=== PATIENT | male | born 1995 | race Caucasian/White ===

== ENCOUNTER 2019-12-16 18:35 | Emergency (ER) | payer OTHER ==
[~2019-12-16] VITALS: Ht 177.8 cm; Wt 64.5 kg
[2019-12-16 18:42] VITALS: BP 109/72
--- NOTE | 2019-12-16 19:04 | NUR ---
PA IN ROOM FOR EVAL. VSS. PT STS NO KETAMINE X7 DAYS IS SEEING THERAPIST CURRENTLY FOR DEPRESSION. DENIES SI/HI. OOB TO BATHROOM GAIT STEADY. STS WHILE ON K BINGE WAS NOT EATING MUCH/WELL. DIFFUSE ABD PAIN WORSE ON PALP, DIARRHEA.
[2019-12-16 19:28] LABS: MICROSCOPIC NOT IND
[2019-12-16 19:31] LABS: ALANINE AMINOTRANSFERASE 31 U/L (12-78); ALBUMIN 3.8 g/dL (3.4-5.0); ANION GAP 6 mmol/L (5-15); CALCIUM 8.9 mg/dL (8.5-10.1); CHLORIDE 106 mmol/L (98-107); CREATININE 0.85 mg/dL (0.7-1.3)
[2019-12-16 19:33] LABS: ALKALINE PHOSPHATASE 100 U/L (45-117); BILIRUBIN,TOTAL 0.3 mg/dL (0.2-1.0); TOTAL PROTEIN 7.8 g/dL (6.4-8.2)
[2019-12-16 19:52] LABS: BASOPHILS # (AUTO) 0.05 x10^3/uL (0-0.1); BASOPHILS % (AUTO) 1 % (0-1); EOSINOPHILS # (AUTO) 0.18 x10^3/uL (0-0.4); EOSINOPHILS % (AUTO) 2 % (1-7); LYMPHOCYTES # (AUTO) 2.53 x10^3/uL (1-3.4); LYMPHOCYTES % (AUTO) 33 % (22-44); MD NO; MEAN CORPUSCULAR HEMOGLOBIN 30.5 pg (27.5-34.5); MEAN CORPUSCULAR HGB CONC 33.2 g/dL (33.2-36.2); MEAN CORPUSCULAR VOLUME 91.7 fL (81-97); MEAN PLATELET VOLUME 9.6 fL (7.4-10.4); MONOCYTES # (AUTO) 0.74 x10^3/uL (0.2-0.8); MONOCYTES % (AUTO) 10 % (2-9); NEUTROPHILS # (AUTO) 4.21 x10^3/uL (1.8-6.8); NEUTROPHILS % (AUTO) 55 % (42-75); PLATELET COUNT 227 x10^3/uL (130-400); RED BLOOD COUNT 4.98 x10^6/uL (4.38-5.82); RED CELL DISTRIBUTION WIDTH 13.2 % (9.4-14.8)
== END 2019-12-16 20:38 | disposition home or self-care (01) ==
LOC: ED 20:22
DX: R10.84 Generalized abdominal pain (principal); R19.7 Diarrhea, unspecified; R35.0 Frequency of micturition
CPT/HCPCS: 36415; 80053; 81003; 83690; 85025; 99283

== ENCOUNTER 2020-05-21 16:13 | Emergency (ER) | payer OTHER ==
[~2020-05-21] VITALS: Ht 154.9 cm; Wt 66.2 kg
[2020-05-21 16:16] VITALS: BP 136/80
[2020-05-21 16:56] LABS: BASOPHILS % (AUTO) 1 % (0-1); EOSINOPHILS % (AUTO) 0 % (1-7); LYMPHOCYTES % (AUTO) 12 % (22-44); MEAN CORPUSCULAR HEMOGLOBIN 30.9 pg (27.5-34.5); MEAN CORPUSCULAR HGB CONC 34.2 g/dL (33.2-36.2); MEAN PLATELET VOLUME 9.1 fL (7.4-10.4); MONOCYTES % (AUTO) 8 % (2-9); NEUTROPHILS % (AUTO) 79 % (42-75); PLATELET COUNT 202 x10^3/uL (130-400); RED BLOOD COUNT 4.79 x10^6/uL (4.38-5.82)
[2020-05-21 16:58] LABS: MD NO
[2020-05-21 17:07] LABS: ALANINE AMINOTRANSFERASE 46 U/L (12-78); ALBUMIN 4.3 g/dL (3.4-5.0); ANION GAP 9 mmol/L (5-15); CALCIUM 8.8 mg/dL (8.5-10.1); CHLORIDE 109 mmol/L (98-107); CREATININE 1.04 mg/dL (0.7-1.3)
[2020-05-21 17:09] LABS: ALKALINE PHOSPHATASE 83 U/L (45-117); TOTAL PROTEIN 7.9 g/dL (6.4-8.2)
== END 2020-05-21 18:12 | disposition home or self-care (01) ==
LOC: ED 16:51
DX: L03.114 Cellulitis of left upper limb (principal)
CPT/HCPCS: 36415; 80053; 85025; 99283

== ENCOUNTER 2020-12-01 17:21 | Emergency (ER) | payer OTHER ==
[~2020-12-01] VITALS: Ht 177.8 cm; Wt 67.0 kg
[2020-12-01] MEDS: SODIUM CHLORIDE 0.9% 1,000 ML IV SCH (08:00)
[2020-12-01 18:09] LABS: ALBUMIN 3.7 g/dL (3.4-5.0); ANION GAP 4 mmol/L (5-15); CALCIUM 8.8 mg/dL (8.5-10.1); CHLORIDE 106 mmol/L (98-107); CREATININE 1.13 mg/dL (0.7-1.3)
--- NOTE | 2020-12-01 19:39 | NUR ---
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 TO ROOM FROM FROM LOBBY AT THIS TIME.
[2020-12-01 19:42] LABS: MEAN CORPUSCULAR HEMOGLOBIN 30.6 pg (27.5-34.5); MEAN CORPUSCULAR HGB CONC 33.3 g/dL (33.2-36.2); MEAN PLATELET VOLUME 8.2 fL (7.4-10.4); PLATELET COUNT 211 x10^3/uL (130-400); RED BLOOD COUNT 5.05 x10^6/uL (4.38-5.82); RED CELL DISTRIBUTION WIDTH 13.7 % (9.4-14.8)
--- NOTE | 2020-12-01 20:00 | NUR ---
Patient advised that a urine sample is required. Patient states he will try after fluids.
[2020-12-01 20:09] LABS: BAND#(MANUAL) 0.34 x10^3/uL; BANDS%(MANUAL) 12 % (0-7); LYMPH#(MANUAL) 0.36 x10^3/uL (1-3.4); LYMPHS% (MANUAL) 13 % (22-44); MONOS#(MANUAL) 0.03 x10^3/uL (0.3-2.7); MONOS% (MANUAL) 1 % (2-9); SEG#(MANUAL) 2.07 x10^3/uL (1.8-6.8); SEGS% (MANUAL) 74 % (42-75)
[2020-12-01 20:10] LABS: <PLATELET ESTIMATE> ADEQUATE; <PLT MORPHOLOGY> NORMAL PLT MORPH
[2020-12-01] MEDS ORDERED: SODIUM CHLORIDE 0.9% 1,000ML IVBOLUS ONE ×2 (20:30→22:00)
[2020-12-01 20:39] LABS: ALBUMIN 3.6 g/dL (3.4-5.0); BILIRUBIN, DIRECT 0.6 mg/dL (0.1-0.2)
[2020-12-01] MEDS ORDERED: LEVOFLOXACIN/PMX 500MG/100ML 100 ML ONE (20:39)
[2020-12-01] MEDS ORDERED: KETOROLAC 30 MG/1 ML ONE (20:39)
[2020-12-01 20:41] LABS: BILIRUBIN,INDIRECT 0.7 mg/dL (0.0-2.0); BILIRUBIN,TOTAL 1.3 mg/dL (0.2-1.0)
[2020-12-01] MEDS ORDERED: SODIUM CHLORIDE FLUSH 10ML SYR IVF ONE (21:00)
[2020-12-01] MEDS ORDERED: LEVOFLOXACIN/PMX 500MG/100ML 100 ML IV SCH (21:00)
[2020-12-01] MEDS ORDERED: KETOROLAC 30 MG/1 ML IVPush ONE (21:00)
[2020-12-01 22:22] LABS: MICROSCOPIC NOT IND
[2020-12-01] MEDS ORDERED: LACTATED RINGERS 1,000 ML IVBOLUS ONE (22:30)
[2020-12-01] MEDS ORDERED: ONDANSETRON 2MG/ML, 2ML IVPush PRN (23:30)
[2020-12-01] MEDS: HEPARIN 5,000 UNITS/ML, 1ML SQ SCH (23:30)
[2020-12-01] MEDS ORDERED: POLYETHYLENE GLYCOL 17 GM PACKET PO PRN (23:30)
[2020-12-01] MEDS ORDERED: BISACODYL 10 MG SUPP PR PRN (23:30)
[2020-12-02] MEDS ORDERED: VANCOMYCIN PER PHARMACY MC PRN
[2020-12-02] MEDS ORDERED: NOREPINEPHRINE 8 MG in SODIUM CHLORIDE 0.9% 242 ML IV PRN
--- NOTE | 2020-12-02 00:17 | NUR ---
LEVO TITRATED UP AT THIS TIME BP 89/47
--- NOTE | 2020-12-02 00:41 | NUR ---
DR LINCOLN AT BEDSIDE FOR CENTRAL LINE PLACEMENT
--- NOTE | 2020-12-02 01:05 | NUR ---
PER DR LINCOLN CENTRAL LINE OK TO USE, LEVO NOW RUNNING ON CENTRAL LINE
[2020-12-02] MEDS ORDERED: LORazepam 2 MG/ML, 1ML ONE (01:15)
[2020-12-02] MEDS ORDERED: LORazepam 2 MG/ML, 1ML IVPush ONE (01:30)
--- NOTE | 2020-12-02 01:59 | NUR ---
pt using urinal independently
--- NOTE | 2020-12-02 02:29 | NUR ---
PT PROVIDED SNACKS AND JUICE AT REQUEST. MARGARITA
--- NOTE | 2020-12-02 02:44 | NUR ---
PHARMACY STS WILL SEND ABX SOON
[2020-12-02] MEDS ORDERED: PHARMACOKINETIC MONITORING MC PRN (03:00)
[2020-12-02] MEDS ORDERED: VANCOMYCIN 1,600 MG in SODIUM CHLORIDE 0.9% 250 ML IV ONE (03:00)
[2020-12-02 05:06] LABS: MEAN CORPUSCULAR HEMOGLOBIN 30.2 pg (27.5-34.5); MEAN CORPUSCULAR HGB CONC 33.2 g/dL (33.2-36.2); PLATELET COUNT 145 x10^3/uL (130-400); RED BLOOD COUNT 4.65 x10^6/uL (4.38-5.82); RED CELL DISTRIBUTION WIDTH 13.3 % (9.4-14.8)
[2020-12-02 05:20] LABS: ALBUMIN 3.1 g/dL (3.4-5.0); ANION GAP 7 mmol/L (5-15); CALCIUM 8.3 mg/dL (8.5-10.1); CHLORIDE 108 mmol/L (98-107)
[2020-12-02] MEDS: MEROPENEM 1 GM in SODIUM CHLORIDE 0.9% 100 ML IV SCH ×3 (05:24→20:21)
[2020-12-02 05:25] LABS: CREATININE 1.41 mg/dL (0.7-1.3)
[2020-12-02 05:26] LABS: ALANINE AMINOTRANSFERASE 322 U/L (12-78); ALKALINE PHOSPHATASE 82 U/L (45-117); BILIRUBIN,TOTAL 1.3 mg/dL (0.2-1.0); TOTAL PROTEIN 6.3 g/dL (6.4-8.2)
[2020-12-02 05:37] LABS: <PLATELET ESTIMATE> DECREASED; <PLT MORPHOLOGY> NORMAL PLT MORPH; ANISOCYTOSIS 1+; BAND#(MANUAL) 5.66 x10^3/uL; BANDS%(MANUAL) 41 % (0-7); LYMPH#(MANUAL) 0.41 x10^3/uL (1-3.4); LYMPHS% (MANUAL) 3 % (22-44); MONOS#(MANUAL) 0.14 x10^3/uL (0.3-2.7); MONOS% (MANUAL) 1 % (2-9); SEG#(MANUAL) 7.59 x10^3/uL (1.8-6.8); SEGS% (MANUAL) 55 % (42-75); TEAR DROPS 1+
[2020-12-02 05:38] LABS: PMNS WITH VACUOLES 1+
--- NOTE | 2020-12-02 06:14 | NUR ---
PT RESTING ON GURVÍCTOR NADN RESP EVEN UNLABORED, PROVIDED WATER AND SNACKS AT REQUEST
[2020-12-02] MEDS ORDERED: ACETAMINOPHEN 500 MG TABLET ONE (06:40)
[2020-12-02] MEDS ORDERED: ACETAMINOPHEN 500 MG TABLET PO ONE (07:00)
--- NOTE | 2020-12-02 07:05 | NUR ---
REPORT TO SARA ANGELOFIRE PREVENTION OFFICER OF CARE
[2020-12-02] MEDS: SODIUM CHLORIDE 0.9% 1,000 ML IV SCH ×2 (08:30→15:06)
[2020-12-02] MEDS ORDERED: SENNA/DOCUSATE TABLET PO SCH (09:00)
[2020-12-02] MEDS ORDERED: SENNA/DOCUSATE TABLET ONE (09:28)
[2020-12-02] MEDS ORDERED: HEPARIN 5,000 UNITS/ML, 1ML ONE (09:28)
[2020-12-02] MEDS: HEPARIN 5,000 UNITS/ML, 1ML SQ SCH (09:33)
--- NOTE | 2020-12-02 11:05 | NUR ---
SPENCER KELLY ([facility] – [place]) [phone]
--- NOTE | 2020-12-02 11:09 | NUR ---
REPORT FROM ELIZABETH CCU RN. ASSUMING CARE OF PT AT THIS TIME.
--- NOTE | 2020-12-02 13:10 | NUR ---
REGULAR DIET TRAY DELIVERED.
--- NOTE | 2020-12-02 14:00 | NUR ---
PT TRANSFERED TO HOSPITAL BED. RESP EVEN AND UNLABORED, MARGARITA.
[2020-12-02] MEDS ORDERED: MELATONIN 5 MG TABLET PO PRN (14:30)
[2020-12-02] MEDS ORDERED: TRAZODONE 100MG TABLET PO PRN (14:30)
[2020-12-02] MEDS ORDERED: LORazepam 0.5MG TABLET PO PRN (14:30)
[2020-12-02] MEDS ORDERED: VANCOMYCIN 1,400 MG in SODIUM CHLORIDE 0.9% 250 ML IV SCH (15:00)
--- NOTE | 2020-12-02 15:00 | NUR ---
PT SLEEPING ON HOSPITAL BED W/ CALL LIGHT IN REACH AND SIDE RAILS UPX2. RESP EVEN AND UNLABORED, MARGARITA.
[2020-12-02] MEDS ORDERED: LORazepam 0.5MG TABLET ONE (16:21)
--- NOTE | 2020-12-02 16:23 | NUR ---
PT HAS C/O ANXIETY D/T CENTRAL LINE, MEDICATED W/ PRN ATIVAN PER EMAR.
--- NOTE | 2020-12-02 16:23 | NUR ---
Sofia gonzalez in ED - 12/02/20 at 1711 by BNICHOLS PT HAS C/O ANXIETY D/T CENTRAL LINE, MEDICATED W/ PRN ATIVAN PER EMAR.
--- NOTE | 2020-12-02 17:04 | NUR ---
PT SLEEPING ON HOSPITAL BED W/ CALL LIGHT IN REACH AND SIDE RAILS UPX2. VSS, NADN. AWAITING CCU ADMIT.
--- NOTE | 2020-12-02 19:00 | NUR ---
RETURNED FROM BREAK. TASK RN NOTIFIED THIS RN THAT UPON ENTERING ROOM PUMPS WERE BEEPING. LEVOPHED WAS TURNED OFF AND NS BOLUS TURNED UP TO 450 ML/HR. PT STATES THE MDICATION IS MAKING HIS HEART HURT. PT IS STARTED BACK ON MEDICATION AND IMMEDIATELY STARTS TO COMPLAIN THAT IT IS HURTING HIS CHEST. PT IS OBSERVERED TO BE IN A SINUS POLA RHYTHM AND 2 EKG'S ARE PERFORMED. MEDICATION IS THEN STOPPED AGAIN. PTS HEART RATE THEN PROCEEDS TO GO BACK UP TO BETWEN 90-100 BPM. BP REMAINS STABLE AT THIS TIME.
--- NOTE | 2020-12-02 19:14 | NUR ---
REPORT TO DALTON ANGELO
[2020-12-02 19:15] VITALS: BP 80/32
--- NOTE | 2020-12-02 19:45 | NUR ---
Report received from GI Son. This RN and GI Wells, to assume care. Upon arriving to the room, patient stated to break RN that he was turning the Levo off on the pump because it makes him feel "like shit." Patient advised of the reasons he is on this medication. Patient continuously stating he doesn't want it and that "the solution to this BP problem is diet and exercise."
--- NOTE | 2020-12-02 20:16 | NUR ---
Hand Laster informed of situation with patient. Provider at bedside.
--- NOTE | 2020-12-02 20:30 | NUR ---
Per Dr. Christie, button breaker operator, patient agreed to recieve Levo with Fentanyl pushes for the pain.
--- NOTE | 2020-12-02 20:56 | NUR ---
Went into patient's room to inform him that the Levo needed to be restarted and Fentanyl pushes will be given. Patient up and out of bed, dressed, and stating he "wants to leave. I want Jada's and I feel good." Cardiology Technician aware and coming down to chat with patient. Patient agreed to wait.
[2020-12-02] MEDS ORDERED: FENTANYL PF 100 MCG/2ML IVPush PRN (21:00)
--- NOTE | 2020-12-02 21:00 | NUR ---
Called Dr. Christie, field service representative, and informed her of situation. She is to come down to discuss further options with patient.
--- NOTE | 2020-12-02 21:24 | NUR ---
Attempted to negotiate with patient to stay. Offered food and medication but patient refused. Advised patient we wanted to get an echo in the morning but patient refused. Patient states, "I will just cleanse my body on my own with a vegan diet and exercise." Asking for the central line and IVs to be d/c. Cross Country Coach and ERP at bedside. Patient refusing all care. Lines removed. Patient signed out AMA. Ambulatory with a steady gait.
--- NOTE | 2020-12-02 21:32 | NUR ---
Central line not charted from insertion date/time. Central line d/c by this RN prior to patient leaving, along with other IVs.
== END 2020-12-02 21:25 | disposition left against medical advice (07) ==
LOC: ED 21:30 → UNDOADMIN 23:11 → EDIP 23:11 → ED 12-02 21:25
DX: K52.9 Noninfective gastroenteritis and colitis, unspecified (principal); Z20.822 Contact with and (suspected) exposure to COVID-19; J45.909 Unspecified asthma, uncomplicated; R65.10 Systemic inflammatory response syndrome (SIRS) of non-infectious origin without acute organ dysfunction; R00.0 Tachycardia, unspecified; D72.825 Bandemia; E87.2 Acidosis; R74.01 Elevation of levels of liver transaminase levels; F20.0 Paranoid schizophrenia; F15.10 Other stimulant abuse, uncomplicated; Z88.0 Allergy status to penicillin; Z99.2 Dependence on renal dialysis; Z88.1 Allergy status to other antibiotic agents
CPT/HCPCS: 36415; 71045; 76700; 80048; 80053; 80076; 81003; 82040; 83605; 84145; 85025; 86705; 86706; 86803; 87040; 87340; 87806; 93005; 96374; 96375; 99285; J1644; J1885; J1956; J2060; J2185; J3370; J7030; J7050; J7120; Q0177; U0003; U0005; G0475

== ENCOUNTER 2020-12-03 17:49 | Inpatient (IN) | payer OTHER ==
[~2020-12-03] VITALS: Ht 177.8 cm; Wt 68.3 kg
[2020-12-03 18:19] LABS: MEAN CORPUSCULAR HEMOGLOBIN 30.5 pg (27.5-34.5); MEAN CORPUSCULAR HGB CONC 33.4 g/dL (33.2-36.2); MEAN PLATELET VOLUME 9.3 fL (7.4-10.4); PLATELET COUNT 149 x10^3/uL (130-400); RED BLOOD COUNT 4.67 x10^6/uL (4.38-5.82); RED CELL DISTRIBUTION WIDTH 13.6 % (9.4-14.8)
[2020-12-03 18:33] LABS: ALBUMIN 3.2 g/dL (3.4-5.0); ANION GAP 6 mmol/L (5-15); CALCIUM 8.5 mg/dL (8.5-10.1); CHLORIDE 110 mmol/L (98-107)
[2020-12-03 18:36] LABS: ALANINE AMINOTRANSFERASE 184 U/L (12-78); ALKALINE PHOSPHATASE 97 U/L (45-117); BILIRUBIN,TOTAL 0.7 mg/dL (0.2-1.0)
[2020-12-03 19:00] LABS: <PLATELET ESTIMATE> ADEQUATE; <PLT MORPHOLOGY> NORMAL PLT MORPH; BAND#(MANUAL) 3.12 x10^3/uL; BANDS%(MANUAL) 20 % (0-7); LYMPHS% (MANUAL) 9 % (22-44); MONOS#(MANUAL) 0.31 x10^3/uL (0.3-2.7); MONOS% (MANUAL) 2 % (2-9); SEG#(MANUAL) 10.76 x10^3/uL (1.8-6.8); SEGS% (MANUAL) 69 % (42-75)
[2020-12-03 19:02] LABS: ANISOCYTOSIS 1+; MICROCYTOSIS 1+
[2020-12-03 19:03] LABS: OVALOCYTES 1+
[2020-12-03 19:04] LABS: TEAR DROPS 1+
--- NOTE | 2020-12-03 19:41 | NUR ---
padder cushion note: This RN spoke with pt and his family member per their request. Service recovery provided.
--- NOTE | 2020-12-03 19:59 | NUR ---
trim technician: patient to room from lobby.
--- NOTE | 2020-12-03 20:17 | NUR ---
THIS IS A 25 YO M BROUGHT IN W/ FAMILY FOR RECHECK. PT STATES HE HAS NO MEDICAL COMPLAINTS AT THIS TIME. PT LEFT AMA FROM THIS FACILITY YESTERDAY AFTER BEING ADMITTED TO THE ICU. PT WAS HELD IN THE ED D/T CENSUS. MARGARITA FAIR. AT BEDSIDE FOR ED EVAL.
[2020-12-03] MEDS ORDERED: MIDAZOLAM 1 MG/ML, 2ML ONE ×2 (20:43→21:34)
[2020-12-03] MEDS ORDERED: ZIPRASIDONE 20 MG INJ IM ONE ×2 (20:44→21:30)
[2020-12-03] MEDS: MIDAZOLAM 1 MG/ML, 2ML IVPush ONE ×2 (20:56→21:39)
--- NOTE | 2020-12-03 20:58 | NUR ---
IN ROOM FOR 20-30 MINUTES EDUCATING PT ON RISKS OF LEAVING AND IMPORTANCE OF STAYING IN THE HOSPITAL. HAD CONVERSATION W/ FAMILY AND WERE IN AGREEMENT TO PUT PT ON LEGAL HOLD D/T BEHAVIOR. PT WALKED OUT OF ROOM AND HEADED TOWARD LOBBY DOOR. PT WAS STOPPED BY JUSTIN ANGELO, WELL MEMBERS OF SECURITY AND LAWRENCE CRONIN. PT SUSTAINED INJURY TO LT HAND IN DOOR DURING ATTEMPTS TO STOP PATIENT FROM LEAVING. PT BROUGHT BACK TO ROOM. MEDICATED BY EULALIA ANGELO. PT NOW RESTING ON GURNEY, CHANGED INTO GOWN. RESP EVEN AND UNLABORED, MARGARITA.
[2020-12-03] MEDS ORDERED: VANCOMYCIN PER PHARMACY MC PRN (21:00)
--- NOTE | 2020-12-03 21:10 | NUR ---
WITH INITIAL CONTACT THE PT. WAS EXPRESSING THAT HE WANTED TO LEAVE. GI KAHN PULLED UP HIS LABS TO DISCUSSED THE CRITICAL NATURE OF HIS ILLNESS. THE PT. WAS INSTRUCTED THAT SHOULD HE LEAVE AMA THAT HIS DOING SO COULD RESULT IN LONGTERM DISABLITIES SHOULD HE SURVIVE OR . THE PT. DID VERBALIZE UNDERSTANDING. DR. LINCOLN WAS AT THE BEDSIDE DISCUSSING THE PT.'S ILLNESS, PLAN OF CARE AND TREATMENTS WITH BOTH HE AND HIS MOTHER WELL HIS AUNT. THE PT. IS STATING TO DR. LINCOLN THAT HE DOESN'T BELIEVE THAT HE IS THAT ILL AND HE FEEL THAT PEOPLE ARE AGAINST HIM. I LATER REEDUCATED THE PT. ON THE SEVERITY OF HIS LEAVING AND HE STATED IT IS HIS CHOICE. THE PT. WAS EDUCATED ON THE MEDICATIONS THAT I AM GIVING HIM AND THAT THEY WOULD HELP HIM RELAX WELL TREAT HIS ANXIETY. THE PT. WAS WILLING TO RECEIVE THE MEDICATIONS AT THIS TIME AND ALLOWED ME TO ESTABLISH IV ACCESS ON HIM. REPORT WAS GIVEN TO THE PRIMARY CARE RN AND THE PT. WAS TAKEN TO CT SCAN.
--- NOTE | 2020-12-03 21:19 | NUR ---
UPON LEAVING THE PT.'S ROOM HE RETURNED FROM CT SCAN AND STATED I WOULD RATHER BE THAN BE HERE. GI STROUD WAS UPDATED.
--- NOTE | 2020-12-03 21:22 | NUR ---
Pt unable to sit still for CT, will attempt at a later time
--- NOTE | 2020-12-03 21:24 | NUR ---
MOMS PHONE [phone]. OK TO CALL W/ UPDATES.
--- NOTE | 2020-12-03 21:28 | NUR ---
PT UNCOOPERATIVE FOR CT AT THIS TIME.
[2020-12-03] MEDS ORDERED: CEFTRIAXONE 1,000 MG in DEXTROSE 5% 50 ML IVPB ONE (21:30)
[2020-12-03 21:33] LABS: SALICYLATE LEVEL < 1.7 mg/dL (2.8-20.0)
--- NOTE | 2020-12-03 21:38 | NUR ---
BEDSIDE REPORT RECEIVED FROM LUANNE RN, PT CARE TRANSFERRED AT THIS TIME.
[2020-12-03] MEDS: MEROPENEM 1 GM in SODIUM CHLORIDE 0.9% 100 ML IV ONE ×2 (21:48→23:24)
--- NOTE | 2020-12-03 21:50 | NUR ---
PT MEDICATED PER MAY, RESTING ON GURNEY, NAD, APPEARS COMFORTABLE LAYING ON HIS RIGHT SIDE, EYES CLOSED, EVEN AND UNLABORED RESPIRATIONS NOTED, VSS AT THIS TIME. BED IN LOWEST, RAILS ENGAGED. WCTM.
[2020-12-03] MEDS ORDERED: MIDAZOLAM 1 MG/ML, 5ML IM ONE (22:00)
[2020-12-03] MEDS ORDERED: MIDAZOLAM 1 MG/ML, 5ML IVPush ONE (22:00)
[2020-12-03] MEDS ORDERED: VANCOMYCIN 1,700 MG in SODIUM CHLORIDE 0.9% 250 ML IV ONE (22:00)
[2020-12-03] MEDS ORDERED: OMNIPAQUE 350 MG/ML, 75ML BOTTLE ONE (22:11)
[2020-12-04] MEDS ORDERED: SODIUM CHLORIDE 0.9% 1,000ML IVBOLUS ONE
[2020-12-04] MEDS ORDERED: VANCOMYCIN PER PHARMACY MC PRN (01:00)
[2020-12-04] MEDS ORDERED: DOCUSATE 100 MG CAPSULE PO PRN (01:00)
[2020-12-04] MEDS ORDERED: ACETAMINOPHEN 325 MG TABLET PO PRN (01:00)
[2020-12-04] MEDS ORDERED: MELATONIN 5 MG TABLET PO PRN (01:00)
[2020-12-04] MEDS ORDERED: ONDANSETRON ODT 4 MG PO PRN (01:00)
[2020-12-04] MEDS: LACTATED RINGERS 1,000 ML IV SCH ×3 (01:02→23:55)
[2020-12-04 01:29] VITALS: BP 98/65
[2020-12-04] MEDS ORDERED: VANCOMYCIN 1,400 MG in SODIUM CHLORIDE 0.9% 250 ML IV SCH (01:30)
[2020-12-04] MEDS ORDERED: PHARMACOKINETIC MONITORING MC PRN (02:00)
[2020-12-04 03:40] LABS: AMPHETAMINE SCREEN, URINE Positive (Negative); BARBITURATE SCREEN, URINE Negative (Negative); BENZODIAZEPINE SCREEN, URINE Positive (Negative); CANNABINOID SCREEN, URINE Negative (Negative); COCAINE SCREEN, URINE Negative (Negative); METHADONE SCREEN, URINE Negative (Negative); OPIATE SCREEN, URINE Negative (Negative)
[2020-12-04 05:05] LABS: MEAN CORPUSCULAR HEMOGLOBIN 30.5 pg (27.5-34.5); MEAN CORPUSCULAR HGB CONC 33.6 g/dL (33.2-36.2); MEAN PLATELET VOLUME 9.1 fL (7.4-10.4); PLATELET COUNT 155 x10^3/uL (130-400); RED BLOOD COUNT 4.42 x10^6/uL (4.38-5.82); RED CELL DISTRIBUTION WIDTH 13.1 % (9.4-14.8)
[2020-12-04 05:28] LABS: CALCIUM 8.4 mg/dL (8.5-10.1); CHLORIDE 114 mmol/L (98-107)
[2020-12-04 05:32] LABS: ANION GAP 3 mmol/L (5-15); CREATININE 0.67 mg/dL (0.7-1.3)
[2020-12-04 06:03] LABS: ANISOCYTOSIS 1+; BAND#(MANUAL) 0.93 x10^3/uL; BANDS%(MANUAL) 8 % (0-7); EOS#(MANUAL) 0.23 x10^3/uL (0.0-0.4); EOS% (MANUAL) 2 % (1-7); LYMPH#(MANUAL) 1.74 x10^3/uL (1-3.4); LYMPHS% (MANUAL) 15 % (22-44); MICROCYTOSIS 1+; MONOS#(MANUAL) 0.81 x10^3/uL (0.3-2.7); MONOS% (MANUAL) 7 % (2-9); SEG#(MANUAL) 7.89 x10^3/uL (1.8-6.8); SEGS% (MANUAL) 68 % (42-75)
[2020-12-04 06:04] LABS: <PLATELET ESTIMATE> ADEQUATE; <PLT MORPHOLOGY> NORMAL PLT MORPH; OVALOCYTES 1+
[2020-12-04 08:15] VITALS: BP 112/78
[2020-12-04 10:44] VITALS: BP 117/82
[2020-12-04] MEDS: ACYCLOVIR 800 MG TABLET PO SCH ×3 (12:37→20:17)
[2020-12-04] MEDS: VANCOMYCIN 1,400 MG in SODIUM CHLORIDE 0.9% 250 ML IV SCH ×2 (12:37→22:49)
[2020-12-04 14:00] VITALS: BP 118/78
[2020-12-04] MEDS ORDERED: OMNIPAQUE 350 MG/ML, 100ML BOTTLE ONE (16:00)
[2020-12-04] MEDS: MEROPENEM 1 GM in SODIUM CHLORIDE 0.9% 100 ML IV SCH (20:14)
[2020-12-04 21:22] VITALS: BP 112/79
[2020-12-04] MEDS: TRAZODONE 100MG TABLET PO PRN (22:52)
[2020-12-04] MEDS: LORazepam 0.5MG TABLET PO PRN (22:52)
[2020-12-05 02:40] VITALS: BP 103/66
[2020-12-05] MEDS: ACYCLOVIR 800 MG TABLET PO SCH ×5 (05:57→21:29)
[2020-12-05 08:01] VITALS: BP 102/54
[2020-12-05 08:52] LABS: BASOPHILS % (AUTO) 1 % (0-1); EOSINOPHILS % (AUTO) 2 % (1-7); LYMPHOCYTES % (AUTO) 20 % (22-44); MEAN CORPUSCULAR HGB CONC 34.4 g/dL (33.2-36.2); MEAN PLATELET VOLUME 8.9 fL (7.4-10.4); MONOCYTES % (AUTO) 7 % (2-9); NEUTROPHILS % (AUTO) 71 % (42-75); PLATELET COUNT 174 x10^3/uL (130-400); RED BLOOD COUNT 4.69 x10^6/uL (4.38-5.82); RED CELL DISTRIBUTION WIDTH 13.4 % (9.4-14.8)
[2020-12-05 09:02] LABS: ALANINE AMINOTRANSFERASE 123 U/L (12-78); ALBUMIN 3.1 g/dL (3.4-5.0); ANION GAP 5 mmol/L (5-15); CALCIUM 8.6 mg/dL (8.5-10.1); CHLORIDE 109 mmol/L (98-107)
[2020-12-05 09:05] LABS: ALKALINE PHOSPHATASE 84 U/L (45-117); BILIRUBIN,TOTAL 0.4 mg/dL (0.2-1.0); CREATININE 0.77 mg/dL (0.7-1.3); TOTAL PROTEIN 6.8 g/dL (6.4-8.2)
[2020-12-05] MEDS: MEROPENEM 1 GM in SODIUM CHLORIDE 0.9% 100 ML IV SCH ×2 (10:11→21:29)
[2020-12-05] MEDS: VANCOMYCIN 1,400 MG in SODIUM CHLORIDE 0.9% 250 ML IV SCH ×2 (11:48→23:32)
[2020-12-05] MEDS: hydrOXyzine 50MG TABLET PO PRN ×2 (12:11→19:22)
[2020-12-05 12:43] VITALS: BP 100/63
[2020-12-05] MEDS: LACTATED RINGERS 1,000 ML IV SCH ×2 (15:39→22:58)
[2020-12-05 19:02] VITALS: BP 111/67
[2020-12-05] MEDS: TRAZODONE 100MG TABLET PO PRN (21:37)
[2020-12-06 01:27] VITALS: BP 96/56
[2020-12-06 05:56] LABS: BASOPHILS % (AUTO) 1 % (0-1); EOSINOPHILS % (AUTO) 4 % (1-7); LYMPHOCYTES % (AUTO) 34 % (22-44); MEAN CORPUSCULAR HEMOGLOBIN 30.6 pg (27.5-34.5); MEAN CORPUSCULAR HGB CONC 33.8 g/dL (33.2-36.2); MEAN PLATELET VOLUME 8.7 fL (7.4-10.4); MONOCYTES % (AUTO) 12 % (2-9); NEUTROPHILS % (AUTO) 50 % (42-75); PLATELET COUNT 187 x10^3/uL (130-400); RED BLOOD COUNT 4.65 x10^6/uL (4.38-5.82); RED CELL DISTRIBUTION WIDTH 12.9 % (9.4-14.8)
[2020-12-06 06:04] LABS: ALANINE AMINOTRANSFERASE 105 U/L (12-78); ALBUMIN 2.9 g/dL (3.4-5.0); ANION GAP 4 mmol/L (5-15); CALCIUM 8.6 mg/dL (8.5-10.1); CHLORIDE 110 mmol/L (98-107); CREATININE 0.71 mg/dL (0.7-1.3)
[2020-12-06 06:06] LABS: ALKALINE PHOSPHATASE 86 U/L (45-117); BILIRUBIN,TOTAL 0.4 mg/dL (0.2-1.0); TOTAL PROTEIN 6.4 g/dL (6.4-8.2)
[2020-12-06] MEDS: ACYCLOVIR 800 MG TABLET PO SCH ×5 (06:14→21:09)
[2020-12-06 07:26] VITALS: BP 103/67
[2020-12-06] MEDS: LACTATED RINGERS 1,000 ML IV SCH ×2 (08:15→22:00)
[2020-12-06] MEDS: MEROPENEM 1 GM in SODIUM CHLORIDE 0.9% 100 ML IV SCH ×2 (08:15→21:09)
[2020-12-06 14:41] VITALS: BP 101/55
[2020-12-06] MEDS: LORazepam 0.5MG TABLET PO PRN (16:49)
[2020-12-06 18:17] VITALS: BP 117/71
[2020-12-06] MEDS: hydrOXyzine 50MG TABLET PO PRN (21:19)
[2020-12-07 00:34] VITALS: BP 116/75
[2020-12-07] MEDS: LACTATED RINGERS 1,000 ML IV SCH (05:29)
[2020-12-07] MEDS: ACYCLOVIR 800 MG TABLET PO SCH ×4 (05:39→17:09)
[2020-12-07 07:46] VITALS: BP 104/66
[2020-12-07] MEDS: MEROPENEM 1 GM in SODIUM CHLORIDE 0.9% 100 ML IV SCH (09:56)
[2020-12-07] MEDS: LORazepam 0.5MG TABLET PO PRN (10:13)
[2020-12-07 10:19] LABS: ALANINE AMINOTRANSFERASE 134 U/L (12-78); ALBUMIN 3.7 g/dL (3.4-5.0); ANION GAP 7 mmol/L (5-15); CALCIUM 9.2 mg/dL (8.5-10.1); CHLORIDE 106 mmol/L (98-107); CREATININE 0.83 mg/dL (0.7-1.3)
[2020-12-07 10:22] LABS: ALKALINE PHOSPHATASE 99 U/L (45-117); BILIRUBIN,TOTAL 0.4 mg/dL (0.2-1.0)
[2020-12-07 10:27] LABS: BASOPHILS % (AUTO) 1 % (0-1); EOSINOPHILS % (AUTO) 3 % (1-7); LYMPHOCYTES % (AUTO) 32 % (22-44); MEAN CORPUSCULAR HEMOGLOBIN 30.7 pg (27.5-34.5); MONOCYTES % (AUTO) 8 % (2-9); NEUTROPHILS % (AUTO) 57 % (42-75); PLATELET COUNT 216 x10^3/uL (130-400); RED BLOOD COUNT 5.23 x10^6/uL (4.38-5.82); RED CELL DISTRIBUTION WIDTH 13.3 % (9.4-14.8)
[2020-12-07 11:40] LABS: HCT (SEDRATE) 47.2 % (39.2-51.8)
[2020-12-07 12:59] VITALS: BP 109/74
[2020-12-07] MEDS ORDERED: AMOX1TAB12 PO (13:16)
[2020-12-07] MEDS ORDERED: MELA5TAB14 PO (13:16)
[2020-12-07] MEDS ORDERED: TRAZ-175 PO (13:16)
[2020-12-07] MEDS ORDERED: HYDR50TA99 PO (13:16)
[2020-12-07] MEDS ORDERED: ACYC-57 PO (13:16)
[2020-12-07] MEDS ORDERED: AMOXICILLIN/CLAV 875-125MG TABLET PO SCH (13:30)
== END 2020-12-07 17:31 | disposition home or self-care (01) | DRG 871 ==
LOC: ED 18:00 → EDIP 23:23 → 3N 12-04 00:05
PROVIDERS: ADMIT Internal Medicine; ATTEND Internal Medicine
DX: A41.9 Sepsis, unspecified organism (principal); R65.21 Severe sepsis with septic shock; F20.0 Paranoid schizophrenia; F15.20 Other stimulant dependence, uncomplicated; R74.01 Elevation of levels of liver transaminase levels; F11.21 Opioid dependence, in remission; J45.909 Unspecified asthma, uncomplicated; F12.90 Cannabis use, unspecified, uncomplicated; F43.21 Adjustment disorder with depressed mood; R16.2 Hepatomegaly with splenomegaly, not elsewhere classified; B00.1 Herpesviral vesicular dermatitis; Z91.19 Patient's noncompliance with other medical treatment and regimen; Z91.14 Patient's other noncompliance with medication regimen; Z88.0 Allergy status to penicillin; Z81.8 Family history of other mental and behavioral disorders; Z59.0 Homelessness
CPT/HCPCS: 36415; 70450; 71275; 74177; 80048; 80053; 80074; 80202; 80299; 80307; 80320; 80329; 83605; 84145; 84443; 85025; 85651; 86140; 86592; 86644; 86645; 86664; 86665; 86780; 87040; 87081; 87806; 93005; 93306; 96372; 96374; 99285; G0378; J2185; J2250; J3370; J3486; Q9967; G0475; G0480; J7030; J7050; J7120